=== PATIENT | female | born 1995 | race Caucasian/White ===

== ENCOUNTER 2022-12-04 14:19 | Emergency (ER) | payer MEDICAID ==
[~2022-12-04] VITALS: Ht 147.3 cm; Wt 82.6 kg
[2022-12-04 14:28] VITALS: BP 132/78; PULSE 123; RESP 14; TEMP 97.1; O2SAT 96
[2022-12-04] MEDS ORDERED: DIGO-80 PO (16:13)
[2022-12-04] MEDS ORDERED: METO25TE71 PO (16:13)
[2022-12-04] MEDS ORDERED: LOSA25TA43 PO (16:13)
[2022-12-04 16:20] VITALS: O2SAT 96
[2022-12-04 17:20] VITALS: BP 106/69; PULSE 78; RESP 16; TEMP 97.8; O2SAT 98
== END 2022-12-04 16:25 | disposition home or self-care (01) ==
LOC: MED 14:19
DX: Q05.4 Unspecified spina bifida with hydrocephalus (principal); G82.20 Paraplegia, unspecified; F79 Unspecified intellectual disabilities; Q24.9 Congenital malformation of heart, unspecified; Z76.0 Encounter for issue of repeat prescription; Z79.899 Other long term (current) drug therapy; Z91.040 Latex allergy status
CPT/HCPCS: 93005; 99283